=== PATIENT | female | born 1975 | race Caucasian/White ===

== ENCOUNTER → 2017-07-31 | Outpatient (CLI) | payer BC | LOC: COL.RAD 09:45 | DX: Z01.89 Encounter for other specified special examinations (principal) ==

== ENCOUNTER → 2017-08-10 | Outpatient (CLI) | payer BC | LOC: COL.RAD 12:27 | DX: M76.62 Achilles tendinitis, left leg (principal); M72.2 Plantar fascial fibromatosis; M76.72 Peroneal tendinitis, left leg; R60.0 Localized edema ==